=== PATIENT | female | born 2000 | race Caucasian/White ===

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

== ENCOUNTER 2025-02-23 21:37 | Emergency (ER) | payer SELFPAY ==
--- NOTE | ~2025-02-23 | CT_ITS ---
CLINICAL HISTORY: RLQ Umbilical Pain Tenderness; ? Appy CT abdomen and pelvis with contrast Comparison: None provided Findings: Minimal dependent atelectasis at the left lung base. The gallbladder and solid organs are within normal limits. No renal stones. No bowel obstruction, pneumoperitoneum, or pneumatosis. Slight fatty induration at the umbilicus. No fluid collections. Mesenteric vessels are patent. Uterus and ovaries unremarkable. Normal appendix. The bones are intact. IMPRESSION: Slight umbilical fat induration. Consider cellulitis. There is no abscess. This document has been electronically signed by: Liu Macias MD on 02/24/2025 04:01:06
[2025-02-23 21:40] VITALS: BP 133/64; PULSE 105; RESP 20; TEMP 36.8; O2SAT 97; BMI 44.8
[2025-02-23 22:01] LABS: MANUAL DIFF FLAG NO
[2025-02-23 22:20] LABS: Alanine Aminotransferase 21 U/L (0-31); Albumin Level 4.5 g/dL (3.5-5.0); Alkaline Phosphatase 82 U/L (39-117); Anion Gap 13 (12-20); Aspartate Amino Transferase 16 U/L (5-31); Blood Urea Nitrogen 19 mg/dL (9-16); Calcium 9.7 mg/dL (8.4-10.2); Carbon Dioxide 23 mmol/L (22-29); Chloride 107 mmol/L (96-108); Creatinine Clr Calc Pharmacy 101.4; Estimated Glomerular Filt Rate > 60; Potassium 3.7 mmol/L (3.3-5.1); Sodium 139 mmol/L (135-145); Total Protein 7.6 g/dL (6.5-8.0)
[2025-02-23 22:25] LABS: Hematocrit 34.7 % (37.0-47.0); Hemoglobin 11.2 g/dl (12.0-16.0); Imm Gran Abs Auto 0.05 X10*3/uL (0.00-0.03); Imm Gran Pct Auto 0.5 % (0.0-0.4); Lymphocytes Absolute Auto 4.0 X10*3/uL (1.2-4.9); Mean Corpuscular HGB Conc 32.3 g/dl (31.0-35.0); Mean Corpuscular Hemoglobin 25.9 pg (27.0-33.0); Mean Corpuscular Volume 80.1 fL (80.0-98.0); NRBC Abs Auto 0.000 X10*3/uL (0.0-0.012); NRBC Pct Auto 0.0 /100WBC (0.0-0.2); Platelet Count 309 X10*3/uL (160-400); Red Blood Count 4.33 X10*6/uL (4.20-5.50); White Blood Count 10.9 X10*3/uL (4.8-10.8)
[2025-02-24 00:26] LABS: Appearance Urine Cloudy; Glucose Urine UA Negative (Negative); PH 6.0 (5.0-9.0); Specific Gravity - Urine >= 1.030 (1.005-1.025); UMIC TRIGGER UACC YES
[2025-02-24 00:28] VITALS: BP 127/81; PULSE 90; RESP 14; TEMP 36.8; O2SAT 97
[2025-02-24 00:36] LABS: UACC Culture Trigger YES
--- NOTE | 2025-02-24 01:08 | ED_ITS ---
HPI - Abdominal Pain General Chief Complaint: Abdominal Pain Stated Complaint: general medical Time Seen by Provider: 02/24/25 01:04 Source: patient Mode of arrival: ambulatory Limitations: no limitations History of Present Illness ED Provider: Pablito WILLIAMSON HPI narrative: The patient is a 25-year-old female who presents to the ED for evaluation of acute onset abdominal pain that began yesterday while she was sitting in a bathtub. As she attempted to stand up, she experienced sudden, severe pain that caused her to bend over and made it difficult to sit or walk. The pain has persisted since onset. Location is primarily raul-umbilical with radiation toward the right lower quadrant. She reports associated mild nausea and a single episode of vomiting. She describes pain with urination, specifically a stabbing sensation in the lower abdomen during urination, which is worse with pressure. She denies burning at the urethral meatus or hematuria. She denies associated fever, chills, diarrhea, hematochezia, melena, chest pain, or back pain. She has had normal bowel movements; last BM was earlier today. No prior similar episodes, no history of abdominal surgeries, and no recent trauma. She has not taken any medications for the pain. Patient reports her last menstrual period was January 17 January 21, reports she often has irregular cycles and is in the process of following up with OBGYN regarding her irregularity. Patient denies vaginal bleeding today. Patient denies any recent sexual activity. Related Data Previous Rx's ?Medication ?Instructions ?Recorded desogestrel-e.estradiol 0.15 1 tab PO DAILY #84 tabs 0 04/16/21 mg-0.02 mg(21)/e.estrad 0.01 mg(5) tablet cephalexin 500 mg capsule 500 mg PO QID #28 caps 02/24 Allergies Allergy/AdvReac Type Severity Reaction Status Date / Time No Known Allergies Allergy Verified 02/23/25 21:42 Review of Systems Review of Systems Yes all other systems are reviewed and are negative REPLACED BY [facility] Family History Family History Maternal Grandmother HTN (hypertension) Social History Social History Alcohol intake: never Patient Tobacco Use Status: Never used Tobacco Smoked in Last 30 Days: No Substance Use Type: Marijuana Advance Directives: No Advance Directives Information Provided: Yes Patient : No Gender identity: Female Physical Exam ED Vital Signs: Vital Signs - 24 hr 02/23/25 21:40 02/24/25 00:28 02/24/25 02:22 Temperature 98.3 F 98.3 F Pulse Rate 105 H 90 79 Respiratory Rate 20 14 16 Blood Pressure 133/64 127/81 108/55 L Pulse Oximetry 97 97 97 Oxygen Delivery Method Room Air Room Air Room Air BMI result Body Mass Index 44.8 CONSTITUTIONAL: The patient appears non-toxic, well nourished and in no acute distress. Vital signs as documented. HEAD: Atraumatic, normocephalic. EYES: EOMs grossly intact, pupils equal, conjunctiva clear, no exudate. ENT: Nares patent, no discharge. Airway patent, no audible stridor, visible mucosa is pink and moist without noted lesions. NECK: Trachea is midline, no obvious masses or gross abnormalities. CHEST: Symmetric movement, normal appearance. LUNGS: LS present and CTAB, no w/r/r. Non-labored work of breathing. CARDIAC: Regular Rhythm, S1/S2 appreciated, no murmurs, rubs or gallops. ABDOMEN: Abdomen soft x4 quadrants, positive tenderness to palpation of the umbilicus and right lower quadrant, positive McBurney's, positive rebound, no palpable masses or organomegaly. Negative CVAT bilaterally. : Deferred. EXTREMITIES: Normal tone, moves all extremities spontaneously without reported pain. No obvious acute injury or deformity noted. NEURO: Alert and oriented x3, CN II-XII appear grossly intact. Cerebellar Functioning grossly intact. No obvious sensory or motor deficits. Speech clear and appropriate. PSYCH: normal affect, appropriate eye contact, fluid speech, with appropriate response to questioning. No reported suicidality or homicidality. SKIN: Warm, dry, color appropriate, normal turgor. No rashes noted. Medical Decision Making Medical Decision Making MDM Narrative: 1:09 AM 02/24/2025 (Kishor WILLIAMSON): The patient is a 25-year-old female who presents to the ED for evaluation of acute onset abdominal pain that began yesterday while she was sitting in a bathtub. As she attempted to stand up, she experienced sudden, severe pain that caused her to bend over and made it difficult to sit or walk. The pain has persisted since onset. Location is primarily raul-umbilical with radiation toward the right lower quadrant. She reports associated mild nausea and a single episode of vomiting. She describes pain with urination, specifically a stabbing sensation in the lower abdomen during urination, which is worse with pressure. She denies burning at the urethral meatus or hematuria. She denies associated fever, chills, diarrhea, hematochezia, melena, chest pain, or back pain. She has had normal bowel movements; last BM was earlier today. No prior similar episodes, no history of abdominal surgeries, and no recent trauma. She has not taken any medications for the pain. Patient reports her last menstrual period was January 17 January 21, reports she often has irregular cycles and is in the process of following up with OBGYN regarding her irregularity. Patient denies vaginal bleeding today. Patient denies any recent sexual activity. On exam patient has point tenderness of the right lower quadrant and periumbilical area, positive McBurney's point tenderness, positive rebound, negative CVAT bilaterally. The patient's laboratory evaluation shows mild leukocytosis of 10.9, no significant anemia, no electrolyte abnormalities or ANDRE. The patient's LFTs are unremarkable. The patient's urinalysis shows increased specific gravity with small leukocyte esterase, 21-50 WBCs, and 3+ bacteria. No nitrites. The patient's urine test is negative. The patient's presentation is concerning for possible acute appendicitis, we will obtain CT abdomen and pelvis to rule out acute appendicitis or other acute intra-abdominal pathology. If CT is unremarkable the patient will be treated for a suspected UTI. The patient's duration of symptoms and characteristics of presentation is not consistent with ovarian torsion. 5:02 AM 02/24/2025 (Kishor WILLIAMSON): The patient's CT shows slight umbilical fat induration, consider possibility of cellulitis but no evidence of abscess. Patient's abdomen was reexamined and shows no significant induration or erythema, no fluctuance or evidence of abscess. The patient will be treated with cephalexin to cover for suspected UTI and simultaneously cover against possible abdominal wall cellulitis. Patient's heart rate has improved and patient remains nontoxic appearing. Patient will be discharged to follow up with PCP for re-evaluation of symptoms. CT and urinalysis findings were explained with the patient and patient states she feels comfortable with care plan as outlined. Admission/Observation Consideration of admission/observation: Escalation of care including admission/observation considered Lab Data MDM Lab Attestation statement: I reviewed the patient's lab results. 02/23/25 21:56 02/23/25 21:56 Labs: Lab Results 02/23/25 02/24/25 Range/Units 21:56 00:21 WBC 10.9 H (4.8-10.8) X10*3/uL RBC 4.33 (4.20-5.50) X10*6/uL Hgb 11.2 L (12.0-16.0) g/dl Hct 34.7 L (37.0-47.0) % MCV 80.1 (80.0-98.0) fL MCH 25.9 L (27.0-33.0) pg MCHC 32.3 (31.0-35.0) g/dl RDW 15.1 (11.0-16.0) % Plt Count 309 (160-400) X10*3/uL MPV 11.6 (9.4-12.3) fL Immature Gran % (Auto) 0.5 H (0.0-0.4) % Neut % (Auto) 53.3 (45-73) % Lymph % (Auto) 36.3 (20-40) % [place] % (Auto) 7.1 (2-11) % Eos % (Auto) 2.3 (0-4) % Baso % (Auto) 0.5 (0-2) % Lymph # (Auto) 4.0 (1.2-4.9) X10*3/uL [place] # (Auto) 0.8 (0.1-1.2) X10*3/uL Eos # (Auto) 0.3 (0.0-0.4) X10*3/uL Baso # (Auto) 0.1 (0.0-0.2) X10*3/uL Abs Immat Gran (auto) 0.05 H (0.00-0.03) X10*3/uL Absolute Neuts (auto) 5.8 (2.0-8.3) x10*3/uL Absolute Nucleated RBC 0.000 (0.0-0.012) X10*3/uL Nucleated RBC % (auto) 0.0 (0.0-0.2) /100WBC Sodium 139 (135-145) mmol/L Potassium 3.7 (3.3-5.1) mmol/L Chloride 107 (96-108) mmol/L Carbon Dioxide 23 (22-29) mmol/L Anion Gap 13 (12-20) BUN 19 H (9-16) mg/dL Creatinine 0.79 (0.5-1.4) mg/dL Estim Creat Clear Calc 101.4 Estimated GFR > 60 Random Glucose 127 H (60-115) mg/dL Calcium 9.7 (8.4-10.2) mg/dL Total Bilirubin 0.2 (0.0-1.0) mg/dL AST 16 (5-31) U/L ALT 21 (0-31) U/L Alkaline Phosphatase 82 (39-117) U/L Total Protein 7.6 (6.5-8.0) g/dL Albumin 4.5 (3.5-5.0) g/dL Urine Color Yellow Urine Appearance Cloudy Urine pH 6.0 (5.0-9.0) Ur Specific [place] >= 1.030 H (1.005-1.025) Urine Protein Negative (Neg-Trace) mg/dL Urine Glucose (UA) Negative (Negative) mg/dL Urine Ketones Trace (Negative) mg/dL Urine Blood Negative (Negative) Urine Nitrite Negative (Negative) Ur Leukocyte Esterase Small (1+) H (Negative) Urine RBC 0-2 (0-2) /HPF Urine WBC 21-50 H (0-5) /HPF Ur Squamous Epith Cells 6-10 (0-2) /HPF Urine Bacteria 3+ (None Seen) Hyaline Casts 0-2 (0-2) /LPF Urine Test NEGATIVE (NEGATIVE) Radiology Impression Discussion of test interpretation with radiology: I have reviewed the radiologist's reading. Radiologist Impression: CT abdomen and pelvis with contrast Comparison: None provided Findings: Minimal dependent atelectasis at the left lung base. The gallbladder and solid organs are within normal limits. No renal stones. No bowel obstruction, pneumoperitoneum, or pneumatosis. Slight fatty induration at the umbilicus. No fluid collections. Mesenteric vessels are patent. Uterus and ovaries unremarkable. Normal appendix. The bones are intact. IMPRESSION: Slight umbilical fat induration. Consider cellulitis. There is no abscess. This document has been electronically signed by: Liu Macias MD on 02/24/2025 04:01:06 Medications Administered Discontinued Medications Generic Name Dose Route Start Last Admin Trade Name [place] PRN Reason Stop Dose Admin Sodium Chloride 1,000 mls @ 999 mls/hr 02/24/25 01:30 02/24/25 02:47 Ns IV 02/24/25 02:30 Infused .Q1H1M MEGHNA Infusion Iohexol 85 ml 02/24/25 03:01 02/24/25 03:02 Iohexol 350 Mg/Ml 100 Ml Infus..Btl IV 02/24/25 03:02 85 ml ONCE ONE Administration Ondansetron HCl 4 mg 02/24/25 01:24 02/24/25 01:28 Ondansetron Hcl 4 Mg/2 Ml Vial IVPUSH 02/24/25 01:25 4 mg ONCE ONE Administration Discharge Plan Discharge Clinical Impression: Cellulitis of abdominal wall UTI (urinary tract infection) Qualifiers: Urinary tract infection type: acute cystitis Hematuria presence: without hematuria Qualified Code(s): N30.00 - Acute cystitis without hematuria Patient Disposition: Home, Self-Care Instructions: Cellulitis (ED), Urinary Tract Infection in Women (ED) Additional Instructions: Thank you for choosing [facility] Emergency Department for your care today. Thankfully your laboratory evaluation and CT today show no evidence of an acute emergent intra-abdominal process requiring surgical intervention, admission to the hospital or continued ED observation, and it is safe to discharge you home. Your urinalysis today is concerning for possibly a urinary tract infection, additionally your CAT scan does show some inflammation of the skin around your belly button, possibly concerning for cellulitis. We are treating you with cephalexin, an antibiotic that will treat both the urinary tract infection or cellulitis. Please take the antibiotic as prescribed until it is finished. You should take alternating (staggered) doses of ibuprofen 600mg and Tylenol 1000mg every 4 hours as needed for any additional pain. Please stay well hydrated and get plenty of rest. Please follow up with your primary care physician for re-evaluation, additional management of your symptoms, and continued preventative care. If you do not have a primary care physician, please call the [facility] at [phone] to establish a new primary care physician. While waiting to establish your new primary care physician, you can call our [facility] at [phone] for non-emergency needs. Please return to the emergency department if you develop a severe or sudden change in your symptoms, a fever over 100.4 that does not improve with Tylenol or Ibuprofen, recurrent vomiting, or any other new or worsening symptoms or concerns. Prescriptions: New cephalexin 500 mg capsule 500 mg PO QID Qty: 28 0RF No Action desog-e.estradiol/e.estradiol 0.15-0.02 mgx21 /0.01 mg x 5 tablet 1 tab PO DAILY Qty: 84 2RF Print Language: Upper Sorbian
[2025-02-24 01:20] LABS: UPreg QC Valid YES
[2025-02-24 02:22] VITALS: BP 108/55; PULSE 79; RESP 16; O2SAT 97
[2025-02-24] MEDS: iohexoL 350 MG/ML 100 ML INFUS..BTL 85 ML IV (03:02)
--- OUTSIDE RECORDS SUMMARY | 2025-02-24 03:30 | XMS_ITS | Clinical Summary ---
Author Organization [facility] Address [address] [place] [address] Care Team Providers Care Audio Director Name Role Phone Unavailable Primary Care Provider Unavailabl e Social History Tobacco Use Types Packs/Day Years Used Date Smoking Tobacco: Never Assessed Comments Unknown Sex and Gender Information Value Date Recorded Sex Assigned at Not on file Legal Sex Female 4:56 AM EST Gender Identity Not on file Sexual Orientation Not on file Plan of Treatment Health Maintenance Due Date Last Done Comments Gonorrhea/Chlamydia Screening 2002 HPV Vaccines (1 - 3-dose series) 2017 Meningococcal B Vaccine (1 o f 2 - Standard) 2018 DTaP,Tdap,and Td Vaccines (1 - Tdap) 2021 Hepatitis B Vaccines (1 of 3 - 19+ 3-dose series) 2021 Cervical Cancer Screening: P ap Smear 2023 Depression Screening 03/09/2024 COVID-19 Vaccine (1 - 2024-2 6 season) 2024 Influenza Vaccine (#1) 2024 RSV Immunization Adult Patie nts (1 - 1-dose 75+ series) 2077 HIB Vaccines Aged Out No longer eligi ble based on patient's age to complete this topic Hepatitis A Vaccines Aged Out No long er eligible based on patient's age to complete this topic IPV Vaccines Aged Out No longer eligi ble based on patient's age to complete this topic MMR Vaccines Aged Out No longer eligi ble based on patient's age to complete this topic Meningococcal ACWY Vaccine Aged Out N o longer eligible based on patient's age to complete this topic Pneumococcal Vaccine: Pediat rics (0 to 5 Years) and At-Risk Patients (6 to 49 Years) Aged Out No longer eligible b ased on patient's age to complete this topic RSV Immunization Patients Un linda 20 months Aged Out No longer eligible b ased on patient's age to complete this topic Varicella Vaccines Aged Out No longer eligible based on patient's age to complete this topic
[2025-02-24 05:05] VITALS: BP 119/72; PULSE 85; RESP 16; TEMP 36.8; O2SAT 97
[2025-02-24 05:19] VITALS: BP 119/72; PULSE 85; RESP 16; TEMP 36.8; O2SAT 97
== END 2025-02-24 05:22 | disposition home or self-care (01) ==
PROVIDERS: Physician Assistant; Emergency Provider Emergency Medicine
DX: L03.311 Cellulitis of abdominal wall (principal); N30.00 Acute cystitis without hematuria
CPT/HCPCS: 36415; 74177; 80053; 81001; 81025; 85025; 87086; 96361; 96374; 99284; J2405; Q9967

== ENCOUNTER → 2025-02-24 01:24 | Outpatient (BNV) | payer BC, SELFPAY | PROVIDERS: Emergency Provider Emergency Medicine; Visit Provider Radiology Diagnostic Radiology | DX: R10.31 Right lower quadrant pain (principal); R10.33 Periumbilical pain | CPT/HCPCS: 74177 ==